=== PATIENT | female | born 1965 | race Caucasian/White ===

== ENCOUNTER → 2017-05-20 | Outpatient (CLI) | payer OTHER ==
[~2017-05-20] MED LIST: BUPR-102 PO; LCTX PO; LEVO200T6 PO; LMC/150 PO; LORA-741 PO; MEDR150I IM; SERT-234 PO; SIMV40TA4 PO
--- NOTE | 2017-05-20 14:14 | MAMMOGRAPHY REPORT ---
BILATERAL DIGITAL SCREENING MAMMOGRAM TOMOSYNTHESIS WITH CAD: 05/20/2017 CLINICAL HISTORY: Routine screening. Patient has no complaints. TECHNIQUE: Breast tomosynthesis in addition to standard 2D mammography was performed. Current study was also evaluated with a Computer Aided Detection (CAD) system. COMPARISON: Comparison is made to exams dated: 04/22/2016 mammogram, 04/02/2015 mammogram, 03/30/2014 ma mmogram, 04/15/2012 mammogram, 12/05/2009 mammogram, and 04/11/2015 mammogram - [facility] nter. BREAST COMPOSITION: The tissue of both breasts is almost entirely fatty. FINDINGS: No suspicious masses, calcifications, or areas of architectural distortion are noted in ei ther breast. There has been no significant interval change compared to prior exams. IMPRESSION: ACR BI-RADS CATEGORY 1: NEGATIVE There is no mammographic evidence of malignancy. A 1 year screening mammogram is recommended. The pa tient will receive written notification of the results. Approximately 10% of breast cancers are not detected with mammography. A negative mammographic report should not delay biopsy if a clinically suggestive mass is present. Cookie Garrison M.D. /:05/20/2017 10:15:58 Director Of Compensation: Chiqui SAL(Immanuel)(M), [facility] letter sent: Normal 1/2 BI-RADS Code: ACR BI-RADS Category 1: Negative
== END | disposition home or self-care (01) ==
LOC: C.MAMM 09:53
PROVIDERS: ATTEND Obstetrics & Gynecology
DX: Z12.31 Encounter for screening mammogram for malignant neoplasm of breast (principal)

== ENCOUNTER → 2018-04-13 | Outpatient (CLI) | payer OTHER ==
--- NOTE | 2018-04-13 17:20 | DIAGNOSTIC IMAGING REPORT ---
LUMBAR SPINE W/O CONTRAST CLINICAL HISTORY: 52 years-old Female with URINARY INCONTINENCE,RADICULOPATHY. Acute urinary and fecal incontinence with pain and weakness of the bilateral lower legs. COMPARISON: None available. TECHNIQUE: Multiplanar, multi sequence MRI of the lumbar spine was performed without intravenous contrast. 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 Aorta, IVC and imaged iliac vessels appear to be within normal limits. No pathologically enlarged lymph nodes. The paraspinal tissues are also within normal limits. No acute fracture, subluxation or bone marrow edema. A 4 mm synovial cyst is seen posterior to the right L4-L5 facets. A 3 mm anterolisthesis L4 on L5 is likely on a degenerative basis. Conus medullaris terminates at T12-L1. An 11 mm T1 and T2 hyperintense lesion of the T11 vertebral body with similar-appearing 5 mm lesion of the T12 vertebral body and 6 mm lesion of the L4 vertebral body suggests areas of focal fatty marrow or vertebral body hemangiomas. T12-L1: No central canal or neural foraminal stenosis. L1-L2: No central canal or neural foraminal stenosis. L2-L3: No central canal or neural foraminal stenosis. Mild ligamentum flavum thickening. L3-L4: Small circumferential annular disc bulge with ligamentum flavum thickening and mild facet arthrosis. Findings cause mild central canal and mild inferior foraminal stenosis on the left. The right foramen is patent. L4-L5: Mild disc desiccation with small circumferential annular disc bulge, ligamentum flavum thickening and moderate facet arthrosis. AP dimension of the thecal sac measures 7 mm. There is moderate central canal, moderate right and mild to moderate left foraminal narrowing. L5-S1: Disc desiccation with small circumferential annular disc bulge and central disc protrusion. Ligamentum flavum thickening with mild facet arthrosis. Flattening of the ventral thecal sac without significant central canal narrowing. There is mild bilateral foraminal stenosis. IMPRESSION: 1. No acute fracture or subluxation. 2. 3 mm anterolisthesis L4 on L5 is likely on a degenerative basis. 3. Circumferential annular disc bulge with ligamentum flavum thickening and facet arthrosis at L4-L5 causes moderate central canal, moderate right and mild to moderate left foraminal stenosis. 4. At L3-L4 there is mild central canal and mild inferior bilateral foraminal stenosis. The above report was generated using voice recognition software. It may contain grammatical, syntax or spelling errors. Dictated: 04/13/2018 3:53 PM Transcribed: 04/13/2018 5:20 PM [email or web address] Electronically signed by: Juan Burkett M.D. 04/13/2018 6:05 PM Dictated Date/Time: 04/13/2018 3:53 PM
== END | disposition home or self-care (01) ==
LOC: C.MRI 15:05
PROVIDERS: ATTEND Family Medicine
DX: M54.10 Radiculopathy, site unspecified (principal); R32 Unspecified urinary incontinence; R15.9 Full incontinence of feces; M79.605 Pain in left leg; M79.604 Pain in right leg

== ENCOUNTER → 2018-04-23 | Outpatient (CLI) | payer OTHER | END | disposition home or self-care (01) | LOC: C.PATHSPEC 15:11 | PROVIDERS: ATTEND Urology | DX: R30.0 Dysuria (principal); R31.29 Other microscopic hematuria; R32 Unspecified urinary incontinence ==